=== PATIENT | female | born 1990 | race Caucasian/White ===

== ENCOUNTER 2024-08-05 11:46 | Emergency (ER) | payer SELFPAY ==
[2024-08-05 12:01] VITALS: BP 132/87; PULSE 120; RESP 20; TEMP 36.4; O2SAT 97
[2024-08-05 12:33] LABS: Bilirubin Urine Negative (Negative); Blood Urine Negative (Negative); Glucose Urine UA Negative (Normal); Ketones Urine 4+ (Negative); Leukocyte Esterase Urine Negative (Negative); Nitrate Urine Negative (Negative); Protein Urine 1+ (Negative); Specific Gravity, Urine 1.023 (1.005-1.030); Urine Appearance Clear (CLEAR); Urine Color Yellow (Yellow); pH Urine 5.5 (5-7)
[2024-08-05 12:38] LABS: Add Urine Microscopic? YES; Bacteria Urine Trace /hpf; RBC Urine 0-2 /hpf (0-2); Squamous Epithelial Cell Urine 0-5 /hpf (0-5); WBC Urine 0-5 /hpf (0-5)
[2024-08-05] MEDS: sodium chloride 0.9% 1,000 ML 999 ML IV ×2 (12:39→13:55)
[2024-08-05] MEDS: ketorolac 30 mg/mL INJ 15 MG IVP (12:39)
[2024-08-05 12:40] LABS: Basophils % 0.5 %; Hematocrit 36.1 % (36-47); Lymphocytes # 0.6 10^3/uL (0.8-4.8); Lymphocytes % 14.1 %; Mean Corpuscular HGB Conc 34.3 g/dL (30-55); Mean Corpuscular Hemoglobin 33.3 pg (27-33); Mean Platelet Volume 9.1 fL (7.4-10.4); Monocytes # 0.2 10^3/uL (0.2-0.9); Monocytes % 5.6 %; Neutrophils # 3.15 10^3/uL (1.8-7.7); Neutrophils % 79.5 %; Nucleated Red Blood Cells % 0 %; Platelet Count 120 10^3/cmm (157-399); Red Blood Count 3.72 10^6/uL (3.85-5.65); Red Cell Distribution Width 13.7 % (12.1-15.1); White Blood Count 3.96 10^3/uL (3.29-11.43)
[2024-08-05 12:42] LABS: HCG Qualitative Urine. Negative (Negative)
[2024-08-05 12:56] LABS: Lactic Sepsis W/Reflex 3.4 mmol/L (0.5-2.2)
[2024-08-05 12:57] LABS: Alanine Aminotransferase 46 U/L (0-33); Albumin Level 4.6 g/dL (3.5-5.2); Alkaline Phosphatase 98 U/L (35-105); Anion Gap 31.2 (5-19); Aspartate Amino Transferase 88 U/L (0-32); Blood Urea Nitrogen 10 mg/dL (6-20); Calcium 8.7 mg/dL (8.5-10.5); Carbon Dioxide 14 mmol/L (22-29); Chloride 95 mmol/L (98-107); Globulin 3.1 g/dL (1.3-4.6); Glomerular Filtration Rate 115.1 mL/min (90-130); Glucose 61 mg/dL (65-115); Lipase 21 U/L (13-60); Osmolality Calculated 279 mOsm/kg (285-295); Potassium 4.2 mmol/L (3.5-5.1); Sodium 136 mmol/L (136-145); Total Bilirubin 0.5 mg/dL (0.15-1.2); Total Protein 7.7 g/dL (6.6-8.7)
--- NOTE | 2024-08-05 13:32 | CTR_ITS ---
PROCEDURE INFORMATION: Exam: CT Abdomen And Pelvis With Contrast Exam date and time: 08/05/2024 1:38 PM Age: 33 years old Clinical indication: Abdominal pain; Localized; Right; HX of pancreatitis; Additional info: Abd pain, right flank pain TECHNIQUE: Imaging protocol: Computed tomography of the abdomen and pelvis with contrast. Radiation optimization: All CT scans at this facility use at least one of these dose optimization techniques: automated exposure control; mA and/or kV adjustment per patient size (includes targeted exams where dose is matched to clinical indication); or iterative reconstruction. Contrast material: OMNIPAQUE 350; Contrast volume: 80 ml; Contrast route: INTRAVENOUS (IV); COMPARISON: No relevant prior studies available. RADIATION DOSE METRICS: Total DLP (mGy-cm): 297 FINDINGS: Lungs: Visualized lung bases are clear. Liver: There is decreased attenuation of the liver suggesting fatty infiltration. Liver appears enlarged measuring approximately 18 cm in length. Gallbladder and biliary ducts: Normal appearance of the gallbladder. No radiopaque cholelithiasis. Pancreas: Normal appearance of the pancreas. No ductal dilation. Spleen: Small nonspecific splenic hypodensity measuring 0.7 cm with internal calcification. Adrenal glands: Normal appearance of both adrenal glands. Kidneys and ureters: Normal appearance of both kidneys. No evidence of nephrolithiasis or hydronephrosis. No renal mass or cyst is seen. Stomach and bowel: Normal appearance of the stomach. Normal appearance of the small bowel without luminal dilation suggested. Mild distal colonic and rectal stool burden. Appendix: The appendix is not positively identified. There are no signs of appendicitis. Intraperitoneal space: Unremarkable. No free air. No significant fluid collection. Vasculature: Normal appearance of the abdominal aorta. No evidence of atherosclerotic disease or aneurysm. Lymph nodes: Unremarkable. No enlarged lymph nodes. Urinary bladder: Normal appearance of the urinary bladder. No intravesicular stone. Reproductive: Normal appearance of the uterus. Ovaries are not well distinguished. Bones/joints: Regional osseous structures have a normal appearance. No fracture, aggressive osseous lesion or significant degenerative change is seen. Soft tissues: The visualized superficial soft tissues have a normal appearance. CT/CT abdomen pelvis w con* [id number] IMPRESSION: 1. No evidence of acute intra-abdominal or pelvic pathology. Specifically, no findings to suggest pancreatitis or nephrolithiasis. 2.Other incidental and/or chronic findings as detailed above.
[2024-08-05 13:35] VITALS: BP 132/87; PULSE 113; RESP 16; O2SAT 95
--- NOTE | 2024-08-05 13:35 | ED_ITS ---
HPI - Female Genitourinary 2 General: Chief complaint: Urogenital-Female Stated complaint: kidney pain Time Seen by Provider: 08/05/24 12:03 History of Present Illness: The patient, Kathy, reports experiencing right kidney pain for several months. They have a history of multiple organ failures, including liver failure and pancreatitis, and are now experiencing kidney issues. The patient was supposed to see a specialist two months ago but was unable to due to losing their job and difficulties with Medicaid. They have been drinking mostly water on the advice of a friend who is a palletiser operator. Recently, the patient has been on a road trip and consumed caffeinated beverages, which they believe exacerbated their symptoms. The patient also mentions their was in the ICU due to a parasite, and they fear they might have contracted it as well. Current symptoms include lethargy, whole-body pain with the right kidney being the worst, and episodes of falling asleep suddenly. The patient denies burning during urination but reports their urine was coca-cola black this morning, which prompted them to seek medical attention. They also report symptoms of cough, congestion, runny nose, and headaches. The patient denies and has a history of a kidney stone, which felt different from the current pain. Related Data Home Medications ?Medication ?Instructions ?Recorded ?Confirmed Marijuana See Rx Instructions .Route . COMPLEX 08/05/24 08/05/24 Allergies Allergy/AdvReac Type Severity Reaction Status Date / Time No Known Drug Allergies Allergy Unknown Verified 08/05/24 12:08 Physical Exam 2 Const: COMMON NORMALS: no acute distress, patient oriented x3 and alert HENMT: COMMON NORMALS: normocephalic and atraumatic HEAD & SCALP: n ormocephalic and atraumatic Eye: COMMON NORMALS: Equal, round and reactive pupils present, EOMs intact bilaterally and no scleral icterus PUPIL: Yes Equal, round and reactive pupils present Resp: COMMON NORMALS: normal respiratory effort and No retractions Cardio: COMMON NORMALS: regular rhythm and No murmurs present (Cardio) R ATE: tachycardic RHYTHM: regular rhythm GI: COMMON NORMALS: Normal to inspection, nondistended, normoactive bowel sounds present PALPATION: Yes Tenderness to palpation present (GI) (diffusely and in bilateral flanks) Details: other Neuro: COMMON NORMALS: patient oriented x3 SENSORIUM/ORIENTATION: Yes alert Skin: COMMON NORMALS: no rashes or lesions noted GENERAL SKIN EXAM: no rashes or lesions noted Course 2 Vital Signs: Vital signs: Vital Signs Temperature 97.5 F L 08/05/24 12:01 Pulse Rate 113 H 08/05/24 13:35 Respiratory Rate 16 08/05/24 13:35 Blood Pressure 132/87 08/05/24 13:35 Pulse Oximetry 95 08/05/24 13:35 Oxygen Delivery Me thod Room Air 08/05/24 12:01 MDM - Female Medical Decision Making In summary, patient is a generally well-appearing 33-year-old female seen for multiple chronic complaints. She was concerned that her urine looked dark today and that she might be getting dehydrated. On arrival she was mildly tachycardic but heart rate improved with IV fluids. Initial CMP showed anion gap elevation of uncertain etiology. CT scan was performed of the abdomen pelvis with contrast without showing any acute process. She will be discharged in stable condition with follow-up to primary care as needed. Lab Data 08/05/24 12:33 08/05/24 15:29 Radiology Impressions Abdomen/Pelvis CT 08/05/24 13:32 IMPRESSION: 1. No evidence of acute intra-abdominal or pelvic pathology. Specifically, no findings to suggest pancreatitis or nephrolithiasis. 2.Other incidental and/or chronic findings as detailed above. Laboratory Results WBC 3.96 10^3/uL (3.29-11.43) 08/05/24 12:33 RBC 3.72 10^6/uL (3.85-5.65) L 08/05/24 12:33 Hgb 12.40 g/dL (11.27-16.99) 08/05/24 12:33 Hct 36.1 % (36-47) 08/05/24 12:33 MCV 97.0 fl (85-98) 08/05/24 12:33 MCH 33.3 pg (27-33) H 08/05/24 12:33 MCHC 34.3 g/dL (30-55) 08/05/24 12:33 RDW 13.7 % (12.1-15.1) 08/05/24 12:33 Plt Count 120 10^3/cmm (157-399) L 08/05/24 12:33 MPV 9.1 fL (7.4-10.4) 08/05/24 12:33 Neut % (Auto) 79.5 % 08/05/24 12:33 Lymph % (Auto) 14.1 % 08/05/24 12:33 [place] % (Auto) 5.6 % 08/05/24 12:33 Eos % (Auto) 0.0 % 08/05/24 12:33 Baso % (Auto) 0.5 % 08/05/24 12: Neut # (Auto) 3.15 10^3/uL (1.8-7.7) 08/05/24 12: Lymph # (Auto) 0.6 10^3/uL (0.8-4.8) L 08/05/24 12: [place] # (Auto) 0.2 10^3/uL (0.2-0.9) 08/05/24 12: Eos # (Auto) 0.0 10^3/uL (0.0-0.8) 08/05/24 12: Baso # (Auto) 0.0 10^3/uL (0.0-0.1) 08/05/24 12: Nucleated RBC % (auto) 0 % 08/05/24 12: Nucleated RBCs # 0.0 /100WBC 08/05/24 12:33 Sodium 136 mmol/L (136-145) 08/05/24 15:29 Potassium 4.5 mmol/L (3.5-5.1) 08/05/24 15:29 Chloride 102 mmol/L (98-107) 08/05/24 15:29 Carbon Dioxide 13 mmol/L (22-29) L 08/05/24 15:29 Anion Gap 25.5 (5-19) H 08/05/24 15:29 BUN 7 mg/dL (6-20) 08/05/24 15:29 Creatinine 0.6 mg/dL (0.5-0.9) 08/05/24 15:29 GFR Calculation 115.1 mL/min (90-130) 08/05/24 15:29 Glucose 51 mg/dL (65-115) L 08/05/24 15:29 Calculated Osmolality 277 mOsm/kg (285-295) L 08/05/24 15:29 Lactic Acid 3.4 mmol/L (0.5-2.2) H 08/05/24 12:33 Lactic Acid (Sepsis) 2.2 mmol/L (0.5-2.2) 08/05/24 15: Calcium 7.0 mg/dL (8.5-10.5) L 08/05/24 15: Total Bilirubin 0.5 mg/dL (0.15-1.2) 08/05/24 12:33 AST 88 U/L (0-32) H 08/05/24 12:33 ALT 46 U/L (0-33) H 08/05/24 12:33 Alkaline Phosphatase 98 U/L (35-105) 08/05/24 12:33 Total Protein 7.7 g/dL (6.6-8.7) 08/05/24 12: Albumin 4.6 g/dL (3.5-5.2) 08/05/24 12: Globulin 3.1 g/dL (1.3-4.6) 08/05/24 12:33 Lipase 21 U/L (13-60) 08/05/24 12:33 HCG, Qual Negative (Negative) 08/05/24 12:02 Urine Color Yellow (Yellow) 08/05/24 12:02 Urine Appearance Clear (CLEAR) 08/05/24 12:02 Urine pH 5.5 (5-7) 08/05/24 12:02 Ur Specific [place] 1.023 (1.005-1.030) 08/05/24 12:02 Urine Protein 1+ (Negative) A 08/05/24 12:02 Urine Glucose (UA) Negative (Normal) 08/05/24 12:02 Urine Ketones 4+ (Negative) 08/05/24 12:02 Urine Blood Negative (Negative) 08/05/24 12:02 Urine Nitrate Negative (Negative) 08/05/24 12:02 Urine Bilirubin Negative (Negative) 08/05/24 12:02 Urine Urobilinogen 1.0 mg/dL (Negative) 08/05/24 12:02 Ur Leukocyte Esterase Negative (Negative) 08/05/24 12:02 Urine RBC 0-2 /hpf (0-2) 08/05/24 12:02 Urine WBC 0-5 /hpf (0-5) 08/05/24 12:02 Ur Squamous Epith Cells 0-5 /hpf (0-5) 08/05/24 12:02 Amorphous Sediment Not Reportable 08/05/24 12:02 Urine Bacteria Trace /hpf (NONE) 08/05/24 12:02 Hyaline Casts 0.40 /lpf 08/05/24 12:02 All radiology interpretation(s) finalized by discharge Discharge Plan Discharge Patient Disposition: Home Clinical Impression: Dehydration Condition: Stable Prescriptions: No Action Marijuana See Rx Instructions .ROUTE .COMPLEX Rx Instructions: Smokes by vape? Discharge Orders: Discharge ED (Routine); Ordered 08/05/24 Ordered By: Bethel Shultz Discharge Diet: Advance as tolerated Discharge Activity: Increase activity as tolerated Patient Instructions: Dehydration (ED) Activity Restrictions/Additional Instructions: Your CT scan is reassuring showing no evidence of acute injury or process requiring hospitalization or surgery. Your initial blood work showed dehydration but that improved with IV fluids. Please stay well-hydrated to avoid further dehydration Print Language: Slovenian Coding Level of Care Code ED Oracle Manager for Liss Randolph
[2024-08-05] MEDS: iohexol 350 mg/mL 500 mL Btl (per mL) IV (13:42)
[2024-08-05] MEDS: diphenhydrAMINE 50 mg/mL SDV 1mL 25 MG IVP (13:55)
[2024-08-05] MEDS: prochlorperazine 10 mg/2 mL Inj 5 MG IVP (13:56)
[2024-08-05 14:26] LABS: Reflex Lactate Order REFLEX LACTIC ORDERD
[2024-08-05 15:53] LABS: Anion Gap 25.5 (5-19); Blood Urea Nitrogen 7 mg/dL (6-20); Carbon Dioxide 13 mmol/L (22-29); Chloride 102 mmol/L (98-107); Glomerular Filtration Rate 115.1 mL/min (90-130); Glucose 51 mg/dL (65-115); Osmolality Calculated 277 mOsm/kg (285-295); Potassium 4.5 mmol/L (3.5-5.1); Sodium 136 mmol/L (136-145)
[2024-08-05 15:54] LABS: Lactic Acid level (Lactate) 2.2 mmol/L (0.5-2.2)
== END 2024-08-05 16:16 | disposition home or self-care (01) ==
PROVIDERS: Emergency Provider Student in an Organized Health Care Education/Training Program
DX: E86.0 Dehydration (principal)
CPT/HCPCS: 36415; 74177; 80048; 80053; 81001; 81025; 83605; 83690; 85025; 96361; 96374; 96375; 99285; J0780; J1200; J1885; J7030

== ENCOUNTER 2024-08-24 13:32 | Emergency (ER) | payer SELFPAY ==
--- NOTE | 2024-08-24 13:37 | XR_ITS ---
WS: [id number] Exam: XR chest 1V portable [id number] Date/Time of Exam: 08/24/2024 1:38 PM Reason For Exam: dyspnea/cough Comparison 01/23/2008. Lungs are fully expanded and clear. Normal cardiomediastinal silhouette. Bony structures are intact. No pleural effusion. XR/XR chest 1V portable [id number] IMPRESSION: 1. Normal chest.
[2024-08-24 13:39] LABS: Glucose Point of Care 215 mg/dL (70-110)
[2024-08-24 13:41] VITALS: BP 134/91; PULSE 85; RESP 18; O2SAT 98; BMI 16.5
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
[2024-08-24 13:44] LABS: Basophils # 0.1 10^3/uL (0.0-0.1); Basophils % 1.5 %; Hematocrit 40.7 % (36-47); Lymphocytes # 0.9 10^3/uL (0.8-4.8); Lymphocytes % 21.9 %; Mean Corpuscular HGB Conc 34.4 g/dL (30-55); Mean Corpuscular Hemoglobin 33.3 pg (27-33); Mean Corpuscular Volume 96.9 fl (85-98); Mean Platelet Volume 9.7 fL (7.4-10.4); Monocytes # 0.4 10^3/uL (0.2-0.9); Monocytes % 9.2 %; Neutrophils # 2.62 10^3/uL (1.8-7.7); Neutrophils % 66.9 %; Nucleated Red Blood Cells % 0 %; Platelet Count 151 10^3/cmm (157-399); Red Cell Distribution Width 16.3 % (12.1-15.1); White Blood Count 3.92 10^3/uL (3.29-11.43)
--- NOTE | 2024-08-24 13:48 | ECG_ITS ---
Safe N Clear Test Date: 2024-08-24 Pat Name: Brenna Qureshi Department: Room: Gender: Female Senior It Project Manager: : 1990 Requested By: Cristóbal Carmona Order Number: [id number] Reading MD: ROWDY SEVILLA Measurements Intervals [place] Rate: 87 P: 72 [place]: 133 QRS: 75 QRSD: 77 T: 55 QT: 358 QTc: 432 Interpretive Statements SINUS RHYTHM POSSIBLE RIGHT VENTRICULAR CONDUCTION DELAY [RSR (QR) IN V1/V2] No previous ECG available for comparison Electronically Signed On 08-24-2024 23:27:34 CDT by ROWDY SEVILLA [email or web address]
[2024-08-24 13:52] LABS: Bilirubin Urine Negative (Negative); Blood Urine Negative (Negative); Glucose Urine UA Trace (Normal); Ketones Urine 4+ (Negative); Leukocyte Esterase Urine Negative (Negative); Nitrate Urine Negative (Negative); Protein Urine 1+ (Negative); Specific Gravity, Urine 1.022 (1.005-1.030); Urine Appearance Clear (CLEAR); Urine Color Yellow (Yellow); pH Urine 5.5 (5-7)
[2024-08-24 13:57] LABS: Add Urine Microscopic? YES; Bacteria Urine None Seen /hpf; Hyaline Casts Urine 2.46 /lpf; Squamous Epithelial Cell Urine 0-5 /hpf (0-5)
--- NOTE | 2024-08-24 14:02 | PC.NURSE ---
pt glucose via FS 158. on arrival, 30min ago glucose 215. Dr. Oliva notified
[2024-08-24 14:04] LABS: Glucose Point of Care 158 mg/dL (70-110)
--- NOTE | 2024-08-24 14:07 | PC.NURSE ---
provided pt with orange juice, sandwich, pudding, margarita crackers, saltine crackers and peanut butter. pt HOB raised and informed need to eat d/t decreasing glucose. pt c/o nausea, Dr. Oliva put orders in for zofran.
[2024-08-24 14:10] LABS: Alanine Aminotransferase 204 U/L (0-33); Albumin Level 4.8 g/dL (3.5-5.2); Alcohol Level 247 mg/dL (0-10); Alkaline Phosphatase 164 U/L (35-105); Ammonia 32 umol/L (11-51); Anion Gap 37.7 (5-19); Aspartate Amino Transferase 610 U/L (0-32); Blood Urea Nitrogen 10 mg/dL (6-20); Carbon Dioxide 14 mmol/L (22-29); Chloride 87 mmol/L (98-107); Creatinine Clr Calc Pharmacy 85.9456; Globulin 3.6 g/dL (1.3-4.6); Glomerular Filtration Rate 115.1 mL/min (90-130); Glucose 52 mg/dL (65-115); Osmolality Calculated 276 mOsm/kg (285-295); Potassium 3.7 mmol/L (3.5-5.1); Sodium 135 mmol/L (136-145); Total Bilirubin 1.1 mg/dL (0.15-1.2); Total Protein 8.4 g/dL (6.6-8.7)
[2024-08-24] MEDS: ondansetron 2 mg/ML SDV 2 mL 4 MG IVP (14:11)
[2024-08-24 14:14] VITALS: BP 134/91; PULSE 84; O2SAT 97
[2024-08-24 14:28] LABS: Glucose Point of Care 172 mg/dL (70-110)
[2024-08-24 14:30] LABS: UA Slide Review UA Slide Review Perf
[2024-08-24 14:37] VITALS: PULSE 71; O2SAT 95
[2024-08-24 15:06] VITALS: PULSE 100; TEMP 36.6; O2SAT 98
[2024-08-24 15:10] LABS: Glucose Point of Care 175 mg/dL (70-110)
[2024-08-24 15:32] VITALS: PULSE 87; O2SAT 95
== END 2024-08-24 15:33 | disposition home or self-care (01) ==
PROVIDERS: Emergency Provider Family Medicine
DX: F10.129 Alcohol abuse with intoxication, unspecified (principal); Y90.8 Blood alcohol level of 240 mg/100 ml or more
CPT/HCPCS: 36416; 71045; 80053; 80307; 81001; 82140; 82962; 85025; 93005; 96374; 99285; J2405